=== PATIENT | female | born 1995 | race Caucasian/White ===

== ENCOUNTER 2025-05-07 05:43 | Inpatient (IN) ==
--- NOTE | 2025-04-26 15:15 | Anesthesiology Consultation ---
Date of Service April 26, 2025 Assessment & Plan (1) Encounter for pre-operative examination: - Per lint cleaner on 04/26/25: No known infectious disease contacts, current infectious disease symptoms in past 10 days or COVID positive test result in the past 30 days. Chart Review Chart Review: coin box inspector initiated History Surgery Operation Date: 05/07/25 07:30 Proposed Procedures p Section (Delivery of Baby Through Abdominal Incision) - Caitlyn Basurto MD Height/Weight Height: 5 ft 4 in Weight: 97.522 kg Allergies Allergy/AdvReac Type Severity Reaction Status Date / Time No Known Allergies Allergy Verified 04/26/25 14:51 Medications Home Medications Medication Instructions Recorded Confirmed Last Taken Medical Marijuana 1 inh inhalation UD PRN prn 04/26/25 04/26/25 Unknown buprenorphine HCl 8 mg sublingual 8 mg sublingual BID 04/26/25 04/26/25 Unknown tablet [id number] 1 mg 1 tab PO DAILY 04/26/25 04/26/25 Unknown tablet sertraline 100 mg tablet 50 mg PO QPM 04/26/25 04/26/25 Unknown Past Medical History Medical History (Updated 04/26/25 @ 15:14 by Diane Otto PA-C) Depression with anxiety Drug addiction History of chicken pox PTSD (post-traumatic stress disorder) Past Family History Family History Mother Tuberculosis Grandfather (Maternal) Diabetes Grandmother (Maternal) Stomach cancer Other Colorectal cancer Denies family history of Ovarian cancer Breast cancer Past Surgical History Surgical History History of colonoscopy S/P section S/P myringotomy with insertion of tube Social History Smoking Status: Current every day smoker Smoking cigarettes per day: 1/2 ppd x 10 years Do You Dip or Chew Tobacco: No Hx Alcohol Use: No Hx Substance Use: Yes substance use type: marijuana and heroin Substance Use Type Other:: 8 years ago-heroin and medical marijuana card-advised Last Used Substance: Days (ago) Last Used Substance Other:: 04/23/2025-medical marijuana
[2025-05-07] MEDS ORDERED: SODIUM CHLORIDE 0.9% 100 ML IV PRN (05:50)
[2025-05-07] MEDS ORDERED: LACTATED RINGER'S 1,000 ML IV SCH ×2 (06:00→08:45)
[2025-05-07] MEDS: ACETAMINOPHEN 500 MG TAB PO SCH (06:41)
[2025-05-07] MEDS: CITRIC ACID/SODIUM CITRATE 15 ML UDC PO SCH (06:41)
[2025-05-07] MEDS: LACTATED RINGER'S 1,000 ML IV SCH (06:42)
[2025-05-07 06:58] LABS: Hematocrit (blood only) 31.4 % (37.0-47.0); Hemoglobin 10.3 g/dl (12.0-16.0); Mean Corpuscular Hemoglobin 27.8 pg (25.0-34.0); Mean Corpuscular Volume 84.6 fL (80.0-100.0); Platelet Count 83 K/uL (130-400); RDW Standard Deviation 40.3 fL (36.4-46.3); Red Blood Count 3.71 M/uL (4.20-5.40); White Blood Count 7.16 K/ul (4.8-10.8)
[2025-05-07 07:23] LABS: Immature Granulocytes # (auto) 0.06 K/uL (0.01-0.20); Immature Granulocytes % (auto) 0.8 %
--- NOTE | 2025-05-07 07:26 | History & Physical Bridge Note ---
Date of Service May 07, 2025 History & Physical Bridge Note I have examined the patient, reviewed the History & Physical and in the interval since the performance of the History & Physical I have noted the following changes of clinical significance: no changes noted
[2025-05-07] MEDS ORDERED: PHENYLEPHRINE HCL 25 MG/250 ML NSS IV ONE (07:28)
[2025-05-07] MEDS ORDERED: MoRPHine SULFATE PF 1 MG/ML 10 ML AMP/VIAL ONE (07:28)
[2025-05-07] MEDS ORDERED: ONDANSETRON INJ 2 MG/ML 2 ML VIAL ONE (07:28)
[2025-05-07] MEDS: ceFAZolin 3,000 MG/72.5 ML BAG IV SCH (07:32)
[2025-05-07] MEDS ORDERED: OXYTOCIN 10 UNITS/ML VIAL ONE (07:34)
[2025-05-07 07:40] LABS: Appearance Urine Clear (Clear); Bacteria Urine Automated None Seen (None Seen); Cast Urine Automated 0-2 /lpf (0-2); Glucose Urine UA Negative (Negative); RBC Urine Automated 0-2 /hpf (0-2); WBC Urine Automated 0-5 /hpf (0-5)
[2025-05-07] MEDS ORDERED: ONDANSETRON INJ 2 MG/ML 2 ML VIAL IV PRN ×2 (08:40→08:45)
[2025-05-07] MEDS ORDERED: LACTATED RINGER'S 500 ML IV PRN (08:40)
[2025-05-07] MEDS ORDERED: NALOXONE HCL 0.4 MG/1 ML VIAL/CARP IV PRN (08:40)
[2025-05-07] MEDS ORDERED: HYDROmorphone INJ 0.5 MG/0.5 ML SYR IV PRN (08:40)
[2025-05-07] MEDS ORDERED: NALBUPHINE HCL INJ 10 MG/ML AMP IV PRN (08:40)
[2025-05-07] MEDS ORDERED: MoRPHine SULFATE 2 MG/ML CARP IV PRN (08:40)
[2025-05-07] MEDS ORDERED: NALOXONE HCL 0.08 MG in SYRINGE 1.8 ML IV PRN (08:40)
[2025-05-07] MEDS ORDERED: NALOXONE HCL 1 MG in SODIUM CHLORIDE 0.9% 1,000 ML IV PRN (08:40)
[2025-05-07] MEDS ORDERED: MEPERIDINE HCL 25 MG/ML CARP/VIAL IV PRN (08:40)
[2025-05-07] MEDS ORDERED: diphenhydrAMINE 50 MG/ML VIAL IV PRN (08:40)
--- NOTE | 2025-05-07 08:40 | Anesthesiology Progress Note ---
Date of Service May 07, 2025 Anesthesia Post Procedure Vital Signs Vital Signs: Temp Pulse Resp BP Pulse Ox 05/07/25 08:36 57 L 137/71 05/07/25 08:35 49 L 100 05/07/25 07:09 36.3 C L 16 05/07/25 07:05 72 128/78 05/07/25 06:47 68 124/64 05/07/25 06:03 36.8 C 18 05/07/25 05:55 18 05/07/25 05:55 36.8 C 18 Transfer of Care Handoff Completed per policy Notes Mental Status: alert / awake / arousable Nausea / Vomiting: adequately controlled Pain: adequately controlled Airway Patency, RR, SpO2: stable & adequate BP & HR: stable & adequate Hydration State: stable & adequate Neuraxial Anesthesia: was administered and sensory block is resolving Anesthetic Complications: no major complications apparent and Pt Satisfied with anesthetic care
[2025-05-07] MEDS ORDERED: HYDROCORTISONE ACETATE 25 MG SUPP PR PRN (08:45)
[2025-05-07] MEDS ORDERED: NO NARCOTICS OR SEDATIVES SCH (08:45)
[2025-05-07] MEDS ORDERED: PROMETHAZINE 12.5 MG/50.5 ML BAG IV PRN (08:45)
[2025-05-07] MEDS ORDERED: CALCIUM CARBONATE 500 MG CHEWABLE TAB PO PRN (08:45)
[2025-05-07] MEDS ORDERED: SENNA 8.6 MG TAB PO PRN (08:45)
[2025-05-07] MEDS ORDERED: BENZOCAINE 20% SPRY 85 APPLN/85 GM CAN EXT PRN (08:45)
[2025-05-07] MEDS ORDERED: MAGNESIUM HYDROXIDE SUSP 30 ML UDC PO PRN (08:45)
[2025-05-07] MEDS ORDERED: DC INTRASPINAL MORPHINE SCH (08:45)
[2025-05-07 08:47] LABS: Amphetamines+Metham, Urine Neg (Neg); MDMA (Ecstacy), Urine Neg (Neg); Marijuana, Urine Pos (Neg)
--- NOTE | 2025-05-07 08:52 | Operative Report ---
PG Post Operative Report Pre & Post Diagnosis Operation Date: 05/07/25 07:30 Pre-Op Diagnosis: History of Section Post-Op Diagnosis: History of Section I identified the patient and participated in the time-out.: Yes Procedure Operation Date: 05/07/25 07:30 Actual Procedures Repeat Low Transverse Section Surgeon Caitlyn Basurto MD External Grinder Tool Scarlett Estimated Blood Loss 290 Findings Consistent with Post-Op Diagnosis Specimens Placenta cord blood Anesthesia Type Spinal Complications none Disposition Accompanied Patient To Recovery: Yes Disposition: L&D Description of Procedure The patient was placed operating table in the supine position with a leftward tilt. She was prepped and draped in standard sterile fashion. The anesthetic was tested and found to be adequate. A time-out was held, identifying correct patient, procedure, positioning and preoperative antibiotics. There were no concerns. A Pfannenstiel skin incision was made with a knife and taken down to the underlying layer of fascia, excising the prior cicatrix. The fascia was incised in the midline with the knife and taken out laterally with scissors. The superior edge of the fascial incision was grasped, elevated and dissected off the underlying rectus both superiorly and inferiorly. The muscles were bluntly in the midline. The peritoneum was entered bluntly. The incision was then stretched. The bladder retractor was placed. The vesicouterine peritoneum was identified, entered with scissors and taken out laterally with scissors. The bladder flap was created digitally. A hysterotomy incision was created transversely in the lower uterine segment, final entry being accomplished in a blunt manner with the salt plant operator's fingers. Clear amniotic fluid was encountered. The salt plant operator's hand was used to elevate the head to the hysterotomy. The head was delivered using mild fundal pressure, and the shoulders and body followed without difficulty. The cord was clamped and cut and the infant was then handed off to the awaiting mobile designer. Cord blood was obtained. The placenta was Manually extracted. The uterus was exteriorized and cleared of all clot and debris with moistened laparotomy sponges. The hysterotomy incision was repaired in two layers, the first in a running locked layer, the second in an imbricating layer. The ovaries and tubes were seen to be normal bilaterally. The uterus was gently replaced in the abdomen, and the gutters were cleared of clot and debris. A final inspection of the hysterotomy revealed good hemostasis. The rectus muscles were allowed to reapproximate naturally. The fascia was then reapproximated with 1 Vicryl in a running nonlocked manner. The fascia was examined and found to be free of defect following closure. The s ubcutaneous tissue was copiously irrigated and reapproximated with 0-chromic, then the skin edges were closed with 4-0 monocryl in a subcuticular fashion. A dermabond dressing was applied. The ledesma was found to be draining clear yellow urine at completion of the procedure. I attest to the content of the Intraoperative Record and any orders documented therein. Any exceptions are noted below. I attest to the content of the Intraoperative Record and any orders documented therein. Any exceptions are noted below.
[2025-05-07] MEDS: KETOROLAC 30 MG/ML VIAL IV SCH (09:22)
[2025-05-07] MEDS: PROMETHAZINE 6.25 MG/50.25 ML BAG IV PRN (09:26)
[2025-05-07] MEDS: SODIUM CHLORIDE 0.9% 1,000 ML IV SCH (11:01)
[2025-05-07] MEDS: OXYTOCIN 20 UNITS/LR 1,002 ML IV SCH (13:24)
[2025-05-07] MEDS: MoRPHine SULFATE PF 1 MG/ML 10 ML AMP/VIAL INT SPINAL ONE (13:27)
[2025-05-07] MEDS: DIPHTHER/TETAN/PERTUS Vaccine (Tdap, Adol/Adult) 0.5mL IM ONE (13:28)
[2025-05-07] MEDS: ACETAMINOPHEN 325 MG TAB PO SCH (14:40)
[2025-05-07] MEDS: SIMETHICONE 80 MG CHEW PO SCH (20:31)
[2025-05-07] MEDS: SERTRALINE HCL 50 MG TABLET PO SCH (20:57)
[2025-05-07] MEDS: DOCUSATE SODIUM 100 MG CAP PO SCH (20:57)
[2025-05-08] MEDS ORDERED: diphenhydrAMINE 50 MG/ML VIAL IV PRN (02:40)
[2025-05-08] MEDS ORDERED: diphenhydrAMINE Capsule 25 MG CAP PO PRN (02:40)
[2025-05-08] MEDS ORDERED: HYDROmorphone INJ 0.5 MG/0.5 ML SYR IV PRN (02:41)
--- NOTE | 2025-05-08 07:09 | Obstetrical Progress Note ---
Date of Service May 08, 2025 Assessment & Plan (1) examination following vaginal delivery: (2) Need for rhogam due to Rh negative mother: (3) Buprenorphine maintenance treatment affecting : (4) Tobacco smoking affecting : (5) Previous delivery affecting , antepartum: Plan 30 y/o pod 1 s/p repeat . complicated by buprenorphine use, UDS +MJ, and tobacco use. Rh(-), rubella immune Feels well today. Vital signs stable Continue post- care Rhogam before discharge Encourage ambulation and Pain controlled with ibuprofen Hgb stable Anticipate home discharge tomorrow, follow-up with Dr. Basurto in 6 weeks. Admission and Anticipated Discharge Date Admission Date: May 07, 2025 Supervising Physician Co-Signing Physician Notes Patient seen with resident and agree with the above findings and plan. Routine post care Subjective 30 y/o pod 1 s/p repeat . complicated by buprenorphine use, UDS +MJ, and tobacco use. Rh(-), rubella immune Ambulation: ambulating normally Voiding: no voiding problems Passing Gas:: Yes Diet Tolerance:: regular diet Lochia:: Small Feeding Type:: bottle feeding Current Pain Level: minimal, controlled with ibuprofen Resting comfortably this AM in NAD. Denies WARD, CP, SOB, N/V/D, LE pain/swelling. Physical Exam Physical Exam: General: patient resting comfortably, NAD, non-toxic in appearance, AA&O x 4, answers questions appropriately. Skin: warm, dry, intact HEENT: NC/AT, anicteric sclera, conjunctiva without injection, moist mucus membranes. Heart: +S1/S2, regular, no m/r/g Lungs: equal air entry bilaterally, no rales/rhonchi/wheezes Abd: +BS, soft, NT/ND, uterine fundus firm at umbilicus, caesarean incision C/D/I. Ext: warm, no clubbing/cyanosis or edema Neuro: nonfocal, patient AA&O x 4, speech intact, no facial droop, moving all extremities on command. Results & Data Vital Signs (Past 12 Hours) Vital Signs Temp Pulse Resp BP Pulse Ox O2 Del Method 05/08/25 03:10 36.5 C 70 18 120/64 96 Room Air 05/08/25 02:35 16 94 09/27/25 01:17 16 96 05/08/25 00:05 16 96 05/08/25 00:05 36.3 C L 62 16 121/69 95 Room Air 05/07/25 23:30 18 96 05/07/25 22:25 18 98 05/07/25 21:30 18 98 05/07/25 20:26 36.7 C 61 18 113/76 98 Room Air 05/07/25 20:26 18 98 05/07/25 19:20 18 97
[2025-05-08] MEDS ORDERED: KETOROLAC 30 MG/ML VIAL IV PRN (08:45)
[2025-05-08] MEDS: IBUPROFEN 600 MG TAB PO SCH (10:40)
[2025-05-08] MEDS: FERROUS SULFATE 325 MG TAB PO SCH (10:42)
[2025-05-08] MEDS: PRENATAL VITAMIN 1 TAB PO SCH (10:42)
[2025-05-08 12:16] LABS: Hemoglobin 9.4 g/dl (12.0-16.0); Platelet Count 70 K/uL (130-400)
--- NOTE | 2025-05-08 13:04 | Ultrasound Report ---
EXAM: US Duplex Bilateral Lower Extremities Veins INDICATION: Swelling. TECHNIQUE: Real-time duplex ultrasound scan of the bilateral lower extremity veins integrating B-mode two-dimensional vascular structure, Doppler spectral analysis, color flow Doppler imaging and compression. COMPARISON: No relevant prior studies available. FINDINGS: Right deep veins: No DVT in the right common femoral, femoral or popliteal veins. The veins demonstrate normal color flow, are normally compressible, with normal phasic flow and/or augmentation response. Right superficial veins: No abnormality noted. No thrombus in the visualized right great saphenous vein. Left deep veins: No DVT in the left common femoral, femoral or popliteal veins. The veins demonstrate normal color flow, are normally compressible, with normal phasic flow and/or augmentation response. Left superficial veins: No abnormality noted. No thrombus in the visualized left great saphenous vein. Soft tissues: No abnormality noted. IMPRESSION: No deep venous thrombosis in either lower extremity. ACT 112: N/A Electronically signed by Eunice Yan 05-08-2025 13:04 PM
--- NOTE | 2025-05-08 13:04 | Ultrasound Report ---
EXAM: US Duplex Bilateral Upper Extremities Veins INDICATION: Swelling TECHNIQUE: Real-time duplex ultrasound scan of the bilateral upper extremity veins integrating B-mode two-dimensional vascular structure, Doppler spectral analysis, color flow Doppler imaging and compression. COMPARISON: No relevant prior studies available. FINDINGS: Right deep veins: No abnormality noted. No DVT in the left internal jugular, subclavian, axillary, or brachial veins. The veins demonstrate normal color flow, are normally compressible, with normal phasic flow and/or augmentation response. Right superficial veins: No abnormality noted. No thrombus in the visualized right basilic and cephalic veins. Left deep veins: No abnormality noted. No DVT in the left internal jugular, subclavian, axillary, or brachial veins. The veins demonstrate normal color flow, are normally compressible, with normal phasic flow and/or augmentation response. Left superficial veins: No abnormality noted. No thrombus in the visualized left basilic and cephalic veins. Soft tissues: No abnormality noted. IMPRESSION: No deep venous thrombosis of either upper extremity. ACT 112: N/A Electronically signed by Eunice Yan 05-08-2025 13:03 PM
--- NOTE | 2025-05-08 13:33 | Communication Note ---
Date of Service: May 08, 2025 Summary of today's events. Despite the rounding note this morning citing "no edema," this patient is well known to me and has had significant pitting edema in her bilateral hands and feet for several weeks now. This occurs in each for her during third trimester. As it is global rather than limited to one limb, she is monitored for PIH (which is not found to have been occurring) and was not tested for DVT (as the likelihood of one in all four limbs is vanishingly low). 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 She underwent repeat yesterday, which was uncomplicated. She was noted at time of admission to have platelets of 83, which was a change from 122 in December 2024. This was sufficient for surgery and did not require intervention on admission. Plan was to repeat CBC postop day 1 to check both Hgb and platelets. This morning I received noticed from Shellie's nurse that her IV site had been lost, and that phlebotomy was having difficulty getting a peripheral venous blood sample. IV team was called, but despite bedside US and many attempts, they were unable to obtain either a functioning IV site or peripheral blood. They further raised concern for DVT in the basilic vein in one upper extremity based on its appearance on US. The new data that there was abnormal venous appearance on US (either inflammation with narrowing, or obstructive clot?) plus thrombocytopenia (now questionably consumptive?) plus global venous compromise due to prior IVDA (may be causing multiple sites of turbulent/poor flow?) increased the probability of multiple DVT's to a level where I felt it was important to ultrasound her deep veins in all four limbs. This was done, and despite the concerns raised by this morning's bedside scan by the IV team, formal doppler testing appears to rule out any DVT. Inability to obtain peripheral blood was discussed with lab. They felt we could obtain the minimum required tests - Hgb, Platelets, and a Rh profile / K-B to determine the appropriate dose of Rhogam - through a few good fingerstick blood samples. Unfortunately due to her severe edema, the blood obtained was unusable due to watery consistency suggesting a significant amount of third-spaced fluid was being incorporated into the specimen. Finally an arterial stick was performed. This did allow us to see Hgb of 9.4 which is appropriate postop. While she may be intravascularly concentrated, her pulse of 67 adds confidence she is tolerating this level of Hgb fine. Her platelets are 70, which is a drop but remains above the level where a platelet transfusion would be a consideration (>50) so venous access is not required for that reason at this time. In the absence of clinical concerns for excessive bleeding, we can likely expect the platelets to rebound with monitoring alone. And the rhogam, once appropriate dose is calculated, can be given IM. At this time I do not feel we are likely enough to require IV access to ask that an EJ/IJ/etc be attempted. Close clinical monitoring will help determine whether this advice needs to change.
[2025-05-08] MEDS ORDERED: Nursing to Pharmacy Communication SCH (17:15)
[2025-05-09] MEDS: IBUPROFEN 600 MG TAB PO ONE (05:36)
--- NOTE | 2025-05-09 07:21 | Obstetrical Progress Note ---
Date of Service May 09, 2025 Assessment & Plan (1) Previous delivery affecting , antepartum: Plan Ready for D/C home, POD#2 from [facility]. Discussed low platelets. Given difficulty of checking levels and clinical stability, will reassess plts at 6wk ppx unless pt notes increased lochia / epistaxis / bleeding gums / easy bruising. She is to call if those occur. Plan future sterilization procedure or alternative contraception given limitations of her insurance w/r/t tubal, which was not able to be performed this visit. Subjective Ambulation: ambulating normally Voiding: no voiding problems Passing Gas:: Yes Diet Tolerance:: regular diet Lochia:: Small Feeding Type:: bottle feeding Current Pain Level(1-10): 0 Physical Exam Constitutional WD/WN, vitals as above Eyes PERRL, conjunctivae normal, anicteric sclerae ENMT external ear and nose normal, oropharynx normal (poor dentition, chronic) Neck trachea midline, no thyromegaly Respiratory normal respiratory effort and able to speak in complete sentences; no respiratory distress, no labored breathing and does not use accessory muscles Cardiovascular Rate/Rhythm: regular rate and regular rhythm Extremities: + pedal edema (All distal extremities 4+ / pitting, stable); no calf tenderness Gastrointestinal (Abdomen) Inspection/Auscultation: abdomen normal to inspection; abdomen not distended C/D/I surgical glue at incision Skin no rashes, warm and dry Psychiatric A+Ox3, euthymic affect Genitourinary Speculum/Bimanual Exam: uterus nontender OB Exam Abdomen: + fundal height (at umbilicus) Fundus: + firm Results & Data Vital Signs (Past 12 Hours) Vital Signs Temp Pulse Resp BP Pulse Ox O2 Del Method 05/08/25 22:52 98.1 F 72 18 124/66 96 Room Air 05/08/25 19:43 97.5 F L 68 18 115/76 98 Room Air
[2025-05-09] MEDS ORDERED: IBUPROFEN 600 MG TAB PO PRN (08:45)
[2025-05-09 08:58] VITALS: BP 133/72; PULSE 76; RESP 16; TEMP 97.7; O2SAT 97
[2025-05-09] MEDS ORDERED: ACETAMINOPHEN 325 MG TAB PO PRN (14:45)
--- NOTE | 2025-05-10 13:56 | Coding Query ---
CODING QUERY To promote full compliance with coding requirements relating to patient care, provider participation is requested in all cases of aquatic instructor uncertainty. Please assist us with the question(s) below: Coding Question(s): Please document weeks of gestation Physician's Response(s): Third trimester / Term Thank you Caitlyn Nadya Principal Diagnosis: "that condition established after study, to be chiefly responsible for occasioning the admission of the patient to the hospital for care." Co-Existing Principal Diagnosis: "when two or more diagnoses equally meet the criteria for principal diagnosis as determined by the circumstances of admission, diagnostic work up, and/or therapy provided, and the Alphabetic Index, Tabular List, or another coding guideline does not provide sequencing direction, any one of the diagnoses may be sequenced first." "When the physician has documented what appears to be a current diagnosis in the body of the record, but has not included the diagnosis in the final diagnostic statement, the physician should be asked whether the diagnosis should be added." (Source Coding [facility] 2 QTR90. p3-4) HETAL
--- NOTE | 2025-05-11 08:09 | Discharge Summary ---
Date of Service May 11, 2025 Admission Exam (Per Admitting) Constitutional WD/WN, vitals as above Eyes PERRL, conjunctivae normal, anicteric sclerae ENMT external ear and nose normal, oropharynx normal (poor dentition, chronic) Neck trachea midline, no thyromegaly Respiratory normal respiratory effort and able to speak in complete sentences; no respiratory distress, no labored breathing and does not use accessory muscles Cardiovascular Rate/Rhythm: regular rate and regular rhythm Extremities: + pedal edema (All distal extremities 4+ / pitting, stable); no calf tenderness Gastrointestinal (Abdomen) Inspection/Auscultation: abdomen normal to inspection; abdomen not distended Skin no rashes, warm and dry Psychiatric A+Ox3, euthymic affect Genitourinary Speculum/Bimanual Exam: uterus nontender OB Exam Abdomen: + fundal height (at umbilicus) Discharge Data Consultations 05/07/25 05:47 Consult Anesthesiology Stat Procedures Performed Operation Date: 05/07/25 07:30 Actual Procedures p Section (Delivery of Baby Through Abdominal Incision) delivery of live male child at 0804 - Caitlyn Basurto MD Hospital Course (1) Previous delivery affecting , antepartum: Plan Ready for D/C home, POD#2 from [facility]. Discussed low platelets. Given difficulty of checking levels and clinical stability, will reassess plts at 6wk ppx unless pt notes increased lochia / epistaxis / bleeding gums / easy bruising. She is to call if those occur. Plan future sterilization procedure or alternative contraception given limitations of her insurance w/r/t tubal, which was not able to be performed this visit. Supervising Physician Co-Signing Physician Notes Patient seen with resident and agree with the above findings and plan. Routine post care Coding Level of Care Code 89430 IN/OBS DISCH 30 MIN/LESS Diagnoses Previous delivery affecting , antepartum O34.219
[2025-05-11 14:17] LABS: Marijuana Quant, GCMS Urine 35 ng/mL (<5)
== END 2025-05-09 11:55 | disposition home or self-care (01) | DRG 788 ==
LOC: 4S1 05:43 → EDSTATUS 07:30 → 4E1 11:57